=== PATIENT | female | born 1970 ===

== ENCOUNTER 2019-02-05 09:08 | Outpatient (CLI) | payer OTHER ==
--- NOTE | 2019-02-05 09:47 | MMO ---
Right Breast MAMMO [facility] RT+[facility]. CLINICAL HISTORY: Patient is 48 years old and is seen for diagnostic exam. The patient has no family history of breast cancer. The patient has no personal history of cancer. VIEWS: The views performed were: right craniocaudal with tomosynthesis; right mediolateral oblique with tomosynthesis; and right mediolateral with tomosynthesis. FILMS COMPARED: The present examination has been compared to prior imaging studies performed at [facility] on 01/22/2019, and at [facility] on 08/26/2009 and 02/05/2019. MAMMOGRAM FINDINGS: The breast is heterogeneously dense, which could obscure a lesion on mammography. Additional views were performed. The previously seen abnormality is not definitely seen on the current study. US of the right lower inner brteast is unremarkable. There are no suspicious masses, suspicious calcifications, or new areas of architectural distortion. IMPRESSION: THERE IS NO MAMMOGRAPHIC EVIDENCE OF MALIGNANCY. A ROUTINE FOLLOW-UP MAMMOGRAM IN 1 YEAR IS RECOMMENDED. THE RESULTS OF THIS EXAM WERE SENT TO THE PATIENT. ACR BI-RADS Category 2 - Benign finding MAMMOGRAPHY NOTE: 1. A negative mammogram report should not delay a biopsy if a dominant of clinically suspicious mass is present. 2. Approximately 10% to 15% of breast cancers are not detected by mammography. 3. Adenosis and dense breasts may obscure an underlying neoplasm.
--- NOTE | 2019-02-05 11:16 | ULT ---
RIGHT BREAST ULTRASOUND: Date: 02/05/19 HISTORY: Abnormal mammogram. FINDINGS: Correlation made with mammograms from today and 01/22/19. Sonographic evaluation of the right lower inner breast demonstrates no abnormality. IMPRESSION: BI-RADS Category 2 - Benign findings. Return to annual mammographic screening. POS: OFF
== END 2019-02-05 09:09 | disposition home or self-care (01) ==
LOC: BICMAMMO 09:08
PROVIDERS: ATTEND Obstetrics & Gynecology
DX: N63.10 Unspecified lump in the right breast, unspecified quadrant (principal)
CPT/HCPCS: G0279